=== PATIENT | female | born 1960 | race Caucasian/White ===

== ENCOUNTER 2017-06-20 08:36 | Outpatient (RCR) | payer OTHER, SELFPAY | END 2017-09-10 10:22 | disposition home or self-care (01) | LOC: PT 08:36 | PROVIDERS: Family Provider Family Medicine; Visit Provider Nurse Practitioner Family | DX: I50.9 Heart failure, unspecified (principal) | CPT/HCPCS: 93798 ==

== ENCOUNTER → 2018-01-06 08:51 | Outpatient (POV) | payer BC, SELFPAY ==
[2018-01-06 09:06] VITALS: BP 121/46; PULSE 77; RESP 18; O2SAT 98; BMI 37.8
[2018-01-06 09:14] VITALS: BP 121/46; PULSE 77; RESP 18; O2SAT 98
--- NOTE | 2018-01-07 12:59 | HMH.PMCON ---
Assessment and Plan (1) Arthritis Current visit: Yes Status: Chronic Category: Medical Code(s): M19.90 - Unspecified osteoarthritis, unspecified site (2) Degenerative joint disease (DJD) of lumbar spine Current visit: Yes Status: Chronic Qualifiers: Spinal osteoarthritis complication: unspecified spinal osteoarthritis Qualified Code(s): M47.816 - Spondylosis without myelopathy or radiculopathy, lumbar region Category: Medical Code(s): M47.816 - Spondylosis without myelopathy or radiculopathy, lumbar region - Assessment and plan all Dx Assessment and Plan for all problems:: We will provide the patient with a lumbar back brace. 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 I will follow-up with the patient after her injection or in 1 month. This note was dictated using voice recognition software and may contain errors or omissions HPI - Data of Consult Consult date: 01/07/18 Requesting Physician: Justa Whittaker APRN Primary Care Provider: Percy Lambert MD Family Provider: Percy Lambert MD - Consult Narrative Reason for consult: Overall arthritic pain History of present illness: Ms. Thrasher is a 57 year old female presents today for consultation in regards to her arthritic pain. Patient states that her pain is a 5 out of 10 and is generalized. Patient states sitting for long periods of time and working increases her pain while rest decreases her pain. Patient used to be on Indocin from her arthritis doctor and she stated she did really well on this however she was taken off of it due to her cardiac history. Patient has been diagnosed with congestive heart failure. Patient has not recently been in physical therapy. Patient states she does not feel like she has the energy for it. Patient is seen Dr. Shrestha In the past. Patient has not tried bracing therapy. CC: Justa Whittaker APRN [facility] History I have reviewed the patient's past medical history: Yes Medical History: Reports:: Congestive Heart Failure, Diabetes Mellitus Type 2, Hyperlipidemia, Hypertension, Internal Pacemaker Denies:: MRSA Other Medical History: Reports: Arthritis Laterality Cases: Bilateral: Tonsillectomy Other Surgeries: Yes: Cardiac Catheterization, Cholecystectomy, Pacemaker - *Social History Alcohol Intake: never Occupational Status: employed Housing: house - Psychiatric History Expresses thoughts of harming self/others: None Suicide Plan Description: No Plan *Family Hx:: Unable to obtain Review of Systems - Review of Systems ROS General: no recent weight change, no fever, no sleep disturbances Respiratory: no cough, no shortness of air, no recurring pulmonary infections Cardiovascular/Peripheral Vascular: No chest pain, No palpitations, no edema, no shortness of breath. Gastrointestinal: no incontinence, normal bowel movements reported Genitourinary: no incontinence Musculoskeletal: Back pain, joint pain Psychiatric: normal mood/ affect Neurological: [denies weakness in extremities], [denies balance issues] Meds Home Medications Medication Instructions Recorded Confirmed Type Allopurinol [Allopurinol 100mg 100 mg PO DAILY 01/06/18 01/06/18 History tablet] Carvedilol [Carvedilol 6.25mg Tab] 6.25 mg PO DAILY 01/06/18 01/06/18 History Furosemide [Furosemide 40MG tAB] 40 mg PO DAILY 01/06/18 01/06/18 History Nystatin/Triamcin 100,000 iunits PO DAILY 01/06/18 01/06/18 History [Nystatin-Triamcinolone Ointm] Rosuvastatin Calcium 10 mg PO DAILY 01/06/18 01/06/18 History Allergies Allergy/AdvReac Type Severity Reaction Status Date / Time Sulfa (Sulfonamide Allergy Mild Unverified 05/14/17 14:32 Antibiotics) [SULFA (SULFONAMIDE ANTIBIOTICS)] Objective Vital signs: Pulse Resp BP Pulse Ox 77 18 121/46 98 01/06/18
--- NOTE | 2018-01-07 13:02 | P.CONS_ITS ---
Assessment and Plan (1) Arthritis Current visit: Yes Status: Chronic Category: Medical Code(s): M19.90 - Unspecified osteoarthritis, unspecified site (2) Degenerative joint disease (DJD) of lumbar spine Current visit: Yes Status: Chronic Qualifiers: Spinal osteoarthritis complication: unspecified spinal osteoarthritis Qualified Code(s): M47.816 - Spondylosis without myelopathy or radiculopathy, lumbar region Category: Medical Code(s): M47.816 - Spondylosis without myelopathy or radiculopathy, lumbar region - Assessment and plan all Dx Assessment and Plan for all problems:: We will provide the patient with a lumbar back brace. 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 I will follow-up with the patient after her injection or in 1 month. This note was dictated using voice recognition software and may contain errors or omissions HPI - Data of Consult Consult date: 01/07/18 Requesting Physician: Justa Whittaker APRN Primary Care Provider: Percy Lambert MD Family Provider: Percy Lambert MD - Consult Narrative Reason for consult: Overall arthritic pain History of present illness: Ms. Thrasher is a 57 year old female presents today for consultation in regards to her arthritic pain. Patient states that her pain is a 5 out of 10 and is generalized. Patient states sitting for long periods of time and working increases her pain while rest decreases her pain. Patient used to be on Indocin from her arthritis doctor and she stated she did really well on this however she was taken off of it due to her cardiac history. Patient has been diagnosed with congestive heart failure. Patient has not recently been in physical therapy. Patient states she does not feel like she has the energy for it. Patient is seen Dr. Shrestha In the past. Patient has not tried bracing therapy. CC: Justa Whittaker APRN [facility] History I have reviewed the patient's past medical history: Yes Medical History: Reports:: Congestive Heart Failure, Diabetes Mellitus Type 2, Hyperlipidemia, Hypertension, Internal Pacemaker Denies:: MRSA Other Medical History: Reports: Arthritis Laterality Cases: Bilateral: Tonsillectomy Other Surgeries: Yes: Cardiac Catheterization, Cholecystectomy, Pacemaker - *Social History Alcohol Intake: never Occupational Status: employed Housing: house - Psychiatric History Expresses thoughts of harming self/others: None Suicide Plan Description: No Plan *Family Hx:: Unable to obtain Review of Systems - Review of Systems ROS General: no recent weight change, no fever, no sleep disturbances Respiratory: no cough, no shortness of air, no recurring pulmonary infections Cardiovascular/Peripheral Vascular: No chest pain, No palpitations, no edema, no shortness of breath. Gastrointestinal: no incontinence, normal bowel movements reported Genitourinary: no incontinence Musculoskeletal: Back pain, joint pain Psychiatric: normal mood/ affect Neurological: [denies weakness in extremities], [denies balance issues] Meds Home Medications Medication Instructions Recorded Confirmed Type Allopurinol [Allopurinol 100mg 100 mg PO DAILY 01/06/18 01/06/18 History tablet] Carvedilol [Carvedilol 6.25mg Tab] 6.25 mg PO DAILY 01/06/18 01/06/18 History Furosemide [Furosemide 40MG tAB] 40 mg PO DAILY 01/06/18 01/06/18 History
--- NOTE | 2018-01-10 09:37 | PC.NURSE ---
verbal approval obtained for voltaren gel from pharmacist and Nyasia Hyde DIRECTOR OF INFECTION PREVENTION. Message left with Manuel ZHU for Dr Ortiz to approve LESI. Manuel stated it will be approx 24hrs.
--- NOTE | 2018-01-10 09:46 | PC.NURSE ---
voltaren gel 1% with 2 refills called into [facility] in [place]. pt notified.
== END ==
PROVIDERS: Family Provider Family Medicine; PCP Family Medicine; Visit Provider Clinical Nurse Specialist Family Health
DX: M19.90 Unspecified osteoarthritis, unspecified site (principal); M51.36 Other intervertebral disc degeneration, lumbar region; M47.816 Spondylosis without myelopathy or radiculopathy, lumbar region
CPT/HCPCS: 99202; 99213

== ENCOUNTER → 2018-03-07 07:53 | Outpatient (CLI) | payer BC, SELFPAY ==
--- NOTE | 2018-03-07 07:59 | CT_ITS ---
CT lumbar spine wo con INDICATION: Low back pain, degenerative disc disease ITS.REASON: DDD ORDERING PHYSICIAN: Percy Lambert MD PATIENT AGE: 57 years COMPARISON: 07/12/2016 TECHNIQUE: Axial images obtained with sagittal and coronal reformats. All CT scans at the facility use one or more dose reduction, viz: automated exposure control, ma/kV adjustment per patient size (including targeted exams where dose is matched to indication, i.e. head), or iterative reconstruction technique. FINDINGS: There is mild lumbar scoliosis convex left measuring approximately 20 degrees. There is multilevel degenerative disc disease with endplate bridging osteophytes. T12-L1: Bridging osteophytes laterally. L1-L2: Degenerative disc disease with bridging osteophytes with facet and ligamentum flavum hypertrophy along with mild bulging disc and mild right-sided foraminal narrowing. L2-L3: Degenerative disc disease with bridging osteophytes along with facet and ligamentum flavum hypertrophy and bulging disc with bilateral lateral recess and foraminal narrowing greater on the right L2-L3: Degenerative disc disease with bridging osteophytes laterally along with facet and ligamentum flavum hypertrophy with moderate bilateral lateral recess and moderate foraminal narrowing right greater than left. L3-L4: Degenerative disc disease with bulging disc along with endplate hypertrophic change posteriorly with facet and ligamentum flavum hypertrophy with canal stenosis and severe bilateral lateral recess narrowing and bilateral foraminal narrowing greater on the right. L4-L5: Degenerative disc disease with endplate hypertrophic change and facet and ligamentum flavum hypertrophy with canal stenosis along with bilateral lateral recess and foraminal narrowing which is greater on the left. L5-S1: Concentric bulging disc with mild degenerative disc disease with severe left-sided foraminal narrowing from underlying osteophyte formation. Incidental note made of nonobstructing 2 mm stone in the lower pole the right kidney. IMPRESSION: Multilevel lumbar spondylosis with prominent osteophytes, scoliosis, facet and ligamentum flavum hypertrophy with bulging disc and multilevel degenerative disc disease with canal stenosis and varying levels of lateral recess and foraminal narrowing. Please see above for detailed description at each level.
== END ==
PROVIDERS: Family Provider Family Medicine; PCP Family Medicine; Visit Provider Family Medicine
DX: M51.36 Other intervertebral disc degeneration, lumbar region (principal)
CPT/HCPCS: 72131

== ENCOUNTER → 2018-06-20 08:53 | Outpatient (CLI) | payer BC, SELFPAY ==
--- NOTE | 2018-06-20 08:56 | MM_ITS ---
MM Dig screening mamm BI w/CAD CAD Screening COMPARISON: Analog mammograms 09/21/2009 and digital mammograms with CAD 06/28/2016 INDICATION: There is a history of breast cancer patient's paternal grandmother diagnosed before menopause. TECHNIQUE: Standard CC and MLO images were obtained. R2 CAD reviewed. FINDINGS: Diffuse heterogenic fibroglandular densities are seen throughout both breast somewhat lessening the sensitivity of mammography. There are stable nodular density outer quadrant right breast consistent with intramammary node. There is a stable oval nodular density inner quadrant left breast. There are mole markers on each breast. There is metallic cardiac pacing device projecting over and obscuring the left axilla. There is no suspicious lesion and no suspicious microcalcifications. IMPRESSION: Diffusely dense parenchymal pattern with no suspicious lesion seen BI-RADS Category: 2 Benign Finding(s) RECOMMENDED FOLLOW-UP: 1YR - 1 YEAR FOLLOW-UP (A letter has been sent to the patient regarding results of the study.)
--- NOTE | 2018-06-20 08:57 | XR_ITS ---
XR DEXA axial skeleton HISTORY: ITS.REASON: OSTEOPENIA ORDERING PHYSICIAN: Percy Lambert MD PATIENT AGE: 57 years COMPARISON: None FINDINGS: The BMD measured at the Left femoral neck is 0.906 g/cm squared with a T score of -1.0. This is considered Normal according to the World Health Organization criteria. Fracture risk is Low. L1-L4 density has a T score score of 4.5 IMPRESSION: Normal bone density. Recommend follow-up exam May 2020
== END ==
PROVIDERS: PCP Family Medicine; Visit Provider Family Medicine
DX: Z12.31 Encounter for screening mammogram for malignant neoplasm of breast (principal); N60.19 Diffuse cystic mastopathy of unspecified breast; M81.0 Age-related osteoporosis without current pathological fracture
CPT/HCPCS: 77067; 77080

== ENCOUNTER → 2018-07-09 11:37 | Outpatient (CLI) | payer BC, SELFPAY ==
--- NOTE | 2018-07-09 11:45 | XR_ITS ---
XR chest 2V HISTORY: Shortness of breath ITS.REASON: SOB ORDERING PHYSICIAN: VERA Cantu PATIENT AGE: 57 years COMPARISON: 04/22/2017 FINDINGS: Biventricular pacemaker with right atrial lead noted. Unremarkable heart size. Calcified granuloma is present in the right lower lobe. Thoracolumbar scoliosis convex left. There is some pleural thickening in the right lower hemithorax laterally. No lobar consolidation or collapse. There is a bone plate of the lower cervical spine. There are degenerative changes in the thoracic spine. IMPRESSION: As above, chronic changes with no acute finding
== END ==
PROVIDERS: PCP Family Medicine; Visit Provider Physician Assistant
DX: R06.02 Shortness of breath (principal)
CPT/HCPCS: 71046

== ENCOUNTER → 2018-08-01 11:09 | Outpatient (CLI) | payer BC, SELFPAY ==
[2018-08-01 15:49] LABS: Anion Gap 14.5 mEq/L (5-15); Blood Urea Nitrogen 16 mg/dL (7-18); Calcium 9.2 mg/dL (8.5-10.1); Carbon Dioxide 29 mmol/L (21.0-32.0); Chloride 102 mmol/L (98-107); Creatinine,Serum 0.94 mg/dL (0.55-1.02); Estimated Glomerular Filt Rate 61 ml/min (>60); GFR (African American) 74 ML/MIN (>60); Glucose 104 mg/dL (74-106); Potassium 4.5 mmoL/L (3.5-5.1); Sodium 141 mmol/L (136-145)
== END ==
PROVIDERS: Visit Provider Nurse Practitioner Family
DX: I50.22 Chronic systolic (congestive) heart failure (principal)
CPT/HCPCS: 36415; 80048

== ENCOUNTER → 2019-04-15 16:02 | Outpatient (CLI) | payer OTHER, SELFPAY ==
--- NOTE | 2019-04-15 16:10 | XR_ITS ---
PROCEDURE: XR HIP RT 2-3V W/PELVIS CLINICAL INDICATION: RT HIP PAIN Recent fall with injury and pain COMPARISON: No exams were available for comparison FINDINGS: Mild osteoarthritic changes of the hip. There is some soft tissue calcification lateral to the greater trochanter well-circumscribed and could be due to a prior trauma. IMPRESSION: Mild osteoarthritis, heterotopic ossification at the greater trochanter, no acute finding Dictated by: Tyler Jaime MD 04/15/2019 17:29 Electronically signed by Tyler Jaime MD in [place] 04/15/2019 17:29
--- NOTE | 2019-04-15 16:10 | XR_ITS ---
PROCEDURE: XR FEMUR RT 2V CLINICAL INDICATION: RT HIP PAIN COMPARISON: No exams were available for comparison FINDINGS: No fracture or dislocation. No lytic or blastic change. There is normal mineralization. Mild osteoarthritic change at the hip and knee Other findings:None. IMPRESSION: No acute findings. Dictated by: Tyler Jaime MD 04/15/2019 17:31 Electronically signed by Tyler Jaime MD in [place] 04/15/2019 17:31
--- NOTE | 2019-04-15 16:10 | XR_ITS ---
PROCEDURE: XR PELVIS MIN 3V CLINICAL INDICATION: RT HIP PAIN COMPARISON: No exams were available for comparison TECHNIQUE: XR Pelvis AP View FINDINGS: No fracture or dislocation is evident. Mild osteoarthritic change of the hips Heterotopic ossification at the greater trochanter on the right. Degenerative changes lumbosacral junction IMPRESSION: No acute findings. Dictated by: Tyler Jaime MD 04/15/2019 17:30 Electronically signed by Tyler Jaime MD in [place] 04/15/2019 17:30
== END ==
PROVIDERS: PCP Physician Assistant; Visit Provider Physician Assistant
DX: M25.551 Pain in right hip (principal)
CPT/HCPCS: 72190; 73502; 73552

== ENCOUNTER → 2019-07-28 12:47 | Outpatient (CLI) | payer OTHER, SELFPAY ==
[2019-07-28 12:55] LABS: Adenovirus F 40/41, stool Not Detected (NotDetected); Astrovirus Not Detected (NotDetected); Campylobacter Not Detected (NotDetected); Clostridium Difficile A/B, PCR Not Detected (NotDetected); Cryptosporidium Not Detected (NotDetected); Cyclospora Cayetanesis Not Detected (NotDetected); Entamoeba histolytica Not Detected (NotDetected); Enteroaggregative E coli Not Detected (NotDetected); Enteropathogenic E coli Not Detected (NotDetected); Enterotoxigenic E coli Not Detected (NotDetected); Giardia lamblia Not Detected (NotDetected); Norovirus Not Detected (NotDetected); Plesimonas Shigalloides, PCR Not Detected (NotDetected); Rotavirus A Not Detected (NotDetected); Salmonella, PCR Not Detected (NotDetected); Sapovirus Not Detected (NotDetected); Shiga-like toxin E coli Not Detected (NotDetected); Shigella Enterovasive E coli Not Detected (NotDetected); Vibrio Cholerae Not Detected (NotDetected); Vibrio, PCR Not Detected (NotDetected); Yersinia Entercolitica, PCR Not Detected (NotDetected)
== END ==
PROVIDERS: Visit Provider Family Medicine
DX: R19.7 Diarrhea, unspecified (principal)
CPT/HCPCS: 87507

== ENCOUNTER 2019-11-03 17:41 | Emergency (ER) | payer OTHER, SELFPAY ==
[2019-11-03 17:42] VITALS: BP 133/86; BP 160/76; PULSE 83; RESP 16; TEMP 36.8; O2SAT 98; BMI 38.6
--- NOTE | 2019-11-03 18:07 | ECG_ITS ---
APPROVED REPORT Exam: Resting ECG HR:75 bpm ECG Measurements Heart Rate 75 AXES NV 84 P 49 QRSd 156 QRS 220 QT 470 T 68 QTc 524 <Conclusion> Electronic ventricular pacemaker Electronically signed by : Rayray Davis, 11/04/2019 06:13:15
--- NOTE | 2019-11-03 18:07 | XR_ITS ---
PROCEDURE: XR CHEST 2V CLINICAL HISTORY: SOA, DROWSY Hypotension, former smoker COMPARISON: CXR CHEST(2 VIEWS-NOT PORTABLE) from 10/15/2014 CXR CHEST(2 VIEWS-NOT PORTABLE) from 04/22/2017 CXR2V XR chest 2V from 07/09/2018 FINDINGS: Biventricular pacemaker with right atrial lead is present from the left subclavian approach. Normal heart size. Calcified granulomas present in the right lower lobe. The remaining lungs are clear. Mild upper thoracic curvature convex right and thoracolumbar curvature convex left with cervical spine bone plate and mild thoracic kyphosis IMPRESSION: No change with no acute finding Dictated by: Tyler Jaime MD 11/03/2019 22:39 Electronically signed by Tyler Jaime MD in [place] 11/03/2019 22:39
--- NOTE | 2019-11-03 18:08 | HMH.EDGENADL ---
ED Disposition Clinical Impression: Blood pressure abnormally low Disposition: Home, Self-Care Condition on Discharge: Good Additional Instructions: Follow-up with your primary care provider and with your glass cut off tender. Take your blood pressure cuff in to be checked against another blood pressure cuff in the office. Return to the emergency room if any worsening of symptoms. Referrals: Percy Lambert MD [Primary Care Provider] - - Critical Care Critical Care Time: No Attestation: On 11/03/19, the high probability of a clinically significant, sudden or life threatening deterioration of the following system(s) required my full and direct attention, intervention and personal management. The time I documented below is in addition to time spent performing reported procedures but includes the following listed in this critical care notation. Medical Decision Making - Medical Records Medical records reviewed: Yes: I reviewed the patient's medical records. - Ambrocio Inquiry Pt receiving controlled substance: No Vital Signs: 11/03/19 17:42 Temperature 98.2 F Temperature Source Oral Pulse Rate [Right Radial] 83 Respiratory Rate 16 Blood Pressure [Left Arm] 160/76 H Blood Pressure [Right Arm] 133/86 Blood Pressure Mean [Left Arm] 104 Blood Pressure Mean [Right Arm] 101 Blood Pressure Source [Left Arm] Automatic Cuff Blood Pressure Source [Right Arm] Automatic Cuff Blood Pressure Position [Left Arm] Sitting Blood Pressure Position [Right Arm] Sitting 02 Sat by Pulse Oximetry 98 Oxygen Delivery Method Room Air - Lab Data Lab results reviewed: Yes: I reviewed the patient's lab results. Lab Results 11/03/19 18:15: WBC 7.3, RBC 4.12 L, Hgb 12.6, Hct 36.5 L, MCV 88.6, MCH 30.6, MCHC 34.5, RDW 16.0, Plt Count 197, MPV 8.0, Neut % (Auto) 64.1, Lymph % (Auto) 22.9, [place] % (Auto) 7.3, Eos % (Auto) 5.2, Baso % (Auto) 0.5, Neut # (Auto) 4.7, Lymph # (Auto) 1.7, [place] # (Auto) 0.5, Eos # (Auto) 0.4, Baso # (Auto) 0.0 11/03/19 18:15: Sodium 135 L, Potassium 3.8, Chloride 103, Carbon Dioxide 23, Anion Gap 12.8, BUN 15, Creatinine 0.80, Estimated Creat Clear 120, Estimated GFR 73, Est GFR ( Amer) 89, Glucose 240 H, Calcium 8.8, Total Bilirubin 0.7, AST 34, ALT 18, Alkaline Phosphatase 150 H, Troponin I < 0.01, Total Protein 7.2, Albumin 3.8, Globulin 3.4 H, Albumin/Globulin Ratio 1.1 Result diagrams: 11/03/19 18:15 11/03/19 18:15 Orders (Tests/Meds): ORDERS Category Date Time Status Chest XR 2 view (NOT portable) [XR chest 2V] Stat Exams 11/03/19 18:07 Taken Troponin I Q3H Lab 11/03/19 21:15 Ordered Troponin I Q3H Lab 11/04/19 00:15 Ordered - ECG Data Tracing #1 EKG interpreted by Kenneth Torres MD: Rhythm: Electronic ventricular pacemaker Rate: 75 No evidence of acute ischemia or injury Medical Decision Narrative: Blood pressure has remained stable in the emergency department. Discussed patient's blood sugar with her and she will follow-up with primary care. General Adult HPI - General Chief complaint: Dizziness Stated complaint: Low blood pressure Time Seen by Provider: 11/03/19 18:09 Mode of Arrival: Ambulatory Limitations: No Limitations Description of Symptoms (Recalled from ER Triage Doc. by RN): PT TO ED VIA PVT CAR C/O LOW BP AT HOME, DIZZINESS, SOA AND DROWSINESS TODAY. PT ADVISES THAT SHE TOOK TWO BENADRYL YESTERDAY BECAUSE SHE THOUGHT SHE MAY HAVE SUN POISONING SO SHE THOUGHT THE DROWSINESS WAS D/T THAT. 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 - History of Present Illness HPI narrative: States her blood pressure was running low today, 80s to 90s systolic, taken at home. She has felt a little short of breath today and drowsy since yesterday. She took Benadryl yesterday for sun poisoning and believes that caused her drowsiness. Denies chest discomfort. Called her cardiology office
[2019-11-03 18:27] LABS: Basophils % 0.5 % (0.1-2.0); Eosinophils # 0.4 K/mm3 (0.0-0.4); Eosinophils % 5.2 % (0.1-12.0); Hematocrit 36.5 % (37.0-47.0); Hemoglobin 12.6 g/dL (12.2-16.2); Lymphocytes # 1.7 K/mm3 (0.7-4.5); Lymphocytes % 22.9 % (10-50); Mean Corpuscular HGB Conc 34.5 g/dL (31.8-35.4); Mean Corpuscular Hemoglobin 30.6 pg (27.0-31.2); Mean Corpuscular Volume 88.6 fl (81-99); Monocytes # 0.5 K/mm3 (0.1-1.0); Monocytes % 7.3 % (1.7-9.3); Neutrophils # 4.7 K/mm3 (1.8-7.8); Neutrophils % 64.1 % (37.0-80.0); Platelet Count 197 K/mm3 (142-424); Red Blood Count 4.12 M/mm3 (4.20-5.40); White Blood Count 7.3 K/mm3 (4.8-10.8)
[2019-11-03 18:30] LABS: Chloride 103 mmol/L (98-107); Potassium 3.8 mmoL/L (3.5-5.1); Sodium 135 mmol/L (136-145)
[2019-11-03 18:33] LABS: Alanine Aminotransferase 18 U/L (12-78); Albumin Level 3.8 g/dl (3.5-5.0); Albumin/Globulin Ratio 1.1 (1.1-1.8); Alkaline Phosphatase 150 U/L (38-126); Anion Gap 12.8 mEq/L (5-15); Aspartate Amino Transferase 34 U/L (14-36); Bilirubin,Total 0.7 mg/dl (0.2-1.3); Blood Urea Nitrogen 15 mg/dl (7-17); Calcium 8.8 mg/dl (8.4-10.2); Carbon Dioxide 23 mmol/L (22.0-30.0); Creatinine Clearance Estimated 120 mL/min (50-200); Estimated Glomerular Filt Rate 73 ml/min (>60); GFR (African American) 89 ML/MIN (>60); Globulin 3.4 g/dL (1.3-3.2); Glucose 240 mg/dl (74-100); Total Protein,Serum 7.2 g/dl (6.3-8.2)
[2019-11-03 19:16] LABS: Troponin I < 0.01 ng/ml (0.00-0.034)
[2019-11-03 20:09] VITALS: BP 133/89; PULSE 85; RESP 19; TEMP 36.6; O2SAT 99
== END 2019-11-03 20:11 | disposition home or self-care (01) ==
PROVIDERS: Emergency Provider Emergency Medicine; PCP Family Medicine
DX: R03.1 Nonspecific low blood-pressure reading (principal); I50.9 Heart failure, unspecified; I10 Essential (primary) hypertension; E78.5 Hyperlipidemia, unspecified; E11.65 Type 2 diabetes mellitus with hyperglycemia; Z95.0 Presence of cardiac pacemaker; Z88.2 Allergy status to sulfonamides; Z79.899 Other long term (current) drug therapy
CPT/HCPCS: 71046; 80053; 84484; 85025; 93005; 96365; 99283

== ENCOUNTER → 2020-01-28 13:57 | Outpatient (CLI) | payer OTHER, SELFPAY ==
[2020-01-28 14:47] LABS: Basophils # 0.1 K/mm3 (0-0.2); Basophils % 0.5 % (0.1-2.0); Eosinophils # 0.3 K/mm3 (0.0-0.4); Eosinophils % 2.9 % (0.1-12.0); Hematocrit 39.9 % (37.0-47.0); Hemoglobin 13.9 g/dL (12.2-16.2); Lymphocytes # 1.4 K/mm3 (0.7-4.5); Lymphocytes % 13.4 % (10-50); Mean Corpuscular HGB Conc 34.8 g/dL (31.8-35.4); Mean Corpuscular Hemoglobin 30.6 pg (27.0-31.2); Mean Corpuscular Volume 88.2 fl (81-99); Mean Platelet Volume 8.2 fl (7.4-10.4); Monocytes # 0.8 K/mm3 (0.1-1.0); Monocytes % 7.5 % (1.7-9.3); Neutrophils # 7.9 K/mm3 (1.8-7.8); Neutrophils % 75.7 % (37.0-80.0); Platelet Count 160 K/mm3 (142-424); Red Blood Count 4.52 M/mm3 (4.20-5.40); Red Cell Distribution Width 15.7 % (11.5-17.5); White Blood Count 10.4 K/mm3 (4.8-10.8)
[2020-01-30 14:43] LABS: Covid-19 Nasal PCR Sendout Lex Not Detected
== END ==
PROVIDERS: PCP Family Medicine; Visit Provider Physician Assistant
DX: Z03.818 Encounter for observation for suspected exposure to other biological agents ruled out (principal)
CPT/HCPCS: 36415; 85025; U0004

== ENCOUNTER → 2020-10-14 07:24 | Outpatient (CLI) | payer MEDICARE, SELFPAY ==
[2020-10-14 08:33] LABS: Hemoglobin A1C 7.4 % (4.0-6.0)
[2020-10-14 09:05] LABS: Alanine Aminotransferase 16 U/L (12-78); Albumin Level 4.5 g/dl (3.5-5.0); Albumin/Globulin Ratio 1.7 (1.1-1.8); Alkaline Phosphatase 102 U/L (38-126); Anion Gap 15.1 mEq/L (5-15); Aspartate Amino Transferase 25 U/L (14-36); Bilirubin,Total 0.7 mg/dl (0.2-1.3); Blood Urea Nitrogen 27 mg/dl (7-17); Calcium 9.6 mg/dl (8.4-10.2); Carbon Dioxide 24 mmol/L (22.0-30.0); Chloride 106 mmol/L (98-107); Chol/HDL Ratio 6.3 (1-3.5); Cholesterol 177 mg/dl (140-200); Estimated Glomerular Filt Rate 64 ml/min (>60); GFR (African American) 77 ML/MIN (>60); Globulin 2.7 g/dL (1.3-3.2); Glucose 193 mg/dl (74-100); HDL Cholesterol 28 mg/dl (40-60); Potassium 4.1 mmoL/L (3.5-5.1); Sodium 141 mmol/L (136-145); Total Protein,Serum 7.2 g/dl (6.3-8.2); Uric Acid 4.6 mg/dl (2.5-6.2)
[2020-10-14 09:12] LABS: Triglycerides 776 mg/dl (30-150)
[2020-10-14 09:16] LABS: Direct LDL Cholesterol 47.89 mg/dL (100-129)
== END ==
PROVIDERS: Visit Provider Family Medicine
DX: E11.59 Type 2 diabetes mellitus with other circulatory complications (principal); E78.5 Hyperlipidemia, unspecified; I10 Essential (primary) hypertension; I25.9 Chronic ischemic heart disease, unspecified; I25.5 Ischemic cardiomyopathy; M25.551 Pain in right hip
CPT/HCPCS: 36415; 80053; 80061; 83036; 84550

== ENCOUNTER → 2020-12-30 08:34 | Outpatient (CLI) | payer MEDICARE, SELFPAY ==
[2020-12-30 10:22] LABS: Chloride 106 mmol/L (98-107); Sodium 144 mmol/L (136-145)
[2020-12-30 10:23] LABS: Potassium 4.5 mmoL/L (3.5-5.1)
[2020-12-30 10:25] LABS: Alanine Aminotransferase 14 U/L (12-78); Albumin Level 4.4 g/dl (3.5-5.0); Albumin/Globulin Ratio 1.6 (1.1-1.8); Alkaline Phosphatase 94 U/L (38-126); Anion Gap 17.5 mEq/L (5-15); Aspartate Amino Transferase 27 U/L (14-36); Bilirubin,Total 0.7 mg/dl (0.2-1.3); Blood Urea Nitrogen 19 mg/dl (7-17); Carbon Dioxide 25 mmol/L (22.0-30.0); Cholesterol 143 mg/dl (140-200); Estimated Glomerular Filt Rate 73 ml/min (>60); GFR (African American) 88 ML/MIN (>60); Globulin 2.7 g/dL (1.3-3.2); Total Protein,Serum 7.1 g/dl (6.3-8.2)
[2020-12-30 10:26] LABS: Calcium 9.7 mg/dl (8.4-10.2); Glucose 150 mg/dl (74-100); HDL Cholesterol 24 mg/dl (40-60)
[2020-12-30 10:31] LABS: Triglycerides 483 mg/dl (30-150)
[2020-12-30 10:37] LABS: Direct LDL Cholesterol 48.55 mg/dL (100-129)
[2020-12-30 18:28] LABS: Basophils # 0.1 K/mm3 (0-0.2); Basophils % 1.1 % (0.1-2.0); Eosinophils # 0.3 K/mm3 (0.0-0.4); Eosinophils % 3.1 % (0.1-12.0); Hematocrit 40.8 % (37.0-47.0); Hemoglobin 13.4 g/dL (12.2-16.2); Lymphocytes # 1.6 K/mm3 (0.7-4.5); Lymphocytes % 18.4 % (10-50); Mean Corpuscular HGB Conc 32.9 g/dL (31.8-35.4); Mean Corpuscular Hemoglobin 29.4 pg (27.0-31.2); Mean Corpuscular Volume 89.3 fl (81-99); Mean Platelet Volume 9.6 fl (7.4-10.4); Monocytes # 0.8 K/mm3 (0.1-1.0); Monocytes % 8.8 % (1.7-9.3); Neutrophils # 5.8 K/mm3 (1.8-7.8); Neutrophils % 68.6 % (37.0-80.0); Platelet Count 237 K/mm3 (142-424); Red Blood Count 4.57 M/mm3 (4.20-5.40); Red Cell Distribution Width 15.7 % (11.5-17.5); White Blood Count 8.4 K/mm3 (4.8-10.8)
[2020-12-30 19:05] LABS: Thyroid Stimulating Hormone 3.65 uIU/mL (0.465-4.68)
== END ==
PROVIDERS: Visit Provider Internal Medicine Cardiovascular Disease
DX: I25.5 Ischemic cardiomyopathy (principal); E78.5 Hyperlipidemia, unspecified; R53.83 Other fatigue
CPT/HCPCS: 80053; 80061; 84443; 85025

== ENCOUNTER → 2021-02-21 15:25 | Outpatient (CLI) | payer MEDICARE, SELFPAY ==
--- NOTE | 2021-02-21 15:33 | XR_ITS ---
PROCEDURE: XR CHEST PORTABLE CLINICAL HISTORY: COVID OUTPATIENT COMPARISON: DX CXR CHEST(2 VIEWS-NOT PORTABLE) from 04/22/2017 CR CXR2V XR chest 2V from 07/09/2018 CR XR CHEST 2V from 11/03/2019 FINDINGS: Biventricular pacemaker is present from left subclavian approach. Right atrial pacer wire also noted. Normal heart size. Calcified granuloma right lung base laterally. The remaining lungs are clear. Degenerative changes thoracic spine with mild lower thoracic curvature convex left IMPRESSION: No change with no acute finding Dictated by: Tyler Jaime MD 02/21/2021 16:28 Tyler Jaime MD in [place] 02/21/2021 16:28
[2021-02-21 15:55] LABS: Adenovirus,PCR Not Detected (NotDetected); Bordetella Pertussis Not Detected (NotDetected); Chlamydophila Pneumoniae, PCR Not Detected (NotDetected); Coronavirus 229E Not Detected (NotDetected); Coronavirus NL63 Not Detected (NotDetected); Coronavirus OC43 Not Detected (NotDetected); Coronovirus HKU1,PCR Not Detected (NotDetected); Human Metapneumovirus Not Detected (NotDetected); Influenza A, PCR Not Detected (NotDetected); Influenza AH1, 2009 Not Detected (NotDetected); Influenza AH1, PCR Not Detected (NotDetected); Influenza AH3,PCR Not Detected (NotDetected); Influenza B, PCR Not Detected (NotDetected); Mycoplasma Pneumoniae, PCR Not Detected (NotDetected); Parainfluenza 1, PCR Not Detected (NotDetected); Parainfluenza 2, PCR Not Detected (NotDetected); Parainfluenza 3, PCR Not Detected (NotDetected); Parainfluenza 4, PCR Not Detected (NotDetected); Respiratory Syncytial Virus Not Detected (NotDetected); Rhinovirus/Enterovirus Not Detected (NotDetected)
[2021-02-21 16:38] LABS: Basophils # 0.1 K/mm3 (0-0.2); Basophils % 0.6 % (0.1-2.0); Eosinophils # 0.2 K/mm3 (0.0-0.4); Eosinophils % 1.9 % (0.1-12.0); Hematocrit 42.2 % (37.0-47.0); Hemoglobin 13.7 g/dL (12.2-16.2); Lymphocytes % 19.2 % (10-50); Mean Corpuscular HGB Conc 32.4 g/dL (31.8-35.4); Mean Corpuscular Hemoglobin 30.4 pg (27.0-31.2); Mean Platelet Volume 8.5 fl (7.4-10.4); Monocytes # 0.9 K/mm3 (0.1-1.0); Monocytes % 8.7 % (1.7-9.3); Neutrophils # 7.2 K/mm3 (1.8-7.8); Neutrophils % 69.5 % (37.0-80.0); Platelet Count 261 K/mm3 (142-424); Red Blood Count 4.49 M/mm3 (4.20-5.40); Red Cell Distribution Width 15.2 % (11.5-17.5); White Blood Count 10.4 K/mm3 (4.8-10.8)
[2021-02-21 17:46] LABS: Coronavirus 19, PCR Detected (NotDetected)
== END ==
PROVIDERS: PCP Family Medicine; Visit Provider Nurse Practitioner Family
DX: U07.1 COVID-19; R06.09 Other forms of dyspnea; R05 Cough
CPT/HCPCS: 36415; 71045; 85025; 87581; 87632; 87798; C9803; U0003; U0005

== ENCOUNTER → 2021-03-02 11:50 | Outpatient (CLI) | payer MEDICARE, SELFPAY ==
--- NOTE | 2021-03-02 11:56 | XR_ITS ---
PROCEDURE: XR CHEST PORTABLE CLINICAL HISTORY: COVID OUTPATIENT COMPARISON: CR CXR2V XR chest 2V from 07/09/2018 CR XR CHEST 2V from 11/03/2019 CR XR CHEST PORTABLE from 02/21/2021 FINDINGS: This slightly poor inspiration. The lung barbosa are clear of active infiltrate. There is a calcified granuloma right lower lobe. Cardiac size is normal. There is a left-sided cardiac pacemaker with dual chamber electrodes both in good position. There is no pleural fluid. Mild multilevel degenerate changes of the thoracic spine and there is mild levo scoliotic curvature of the thoracolumbar junction. IMPRESSION: No acute findings. Dictated by: Dr. Moises Hoskins MD 03/02/2021 12:16 Dr. Moises Hoskins MD in [place] 03/02/2021 12:16
[2021-03-02 12:52] LABS: Basophils # 0.2 K/mm3 (0-0.2); Basophils % 0.9 % (0.1-2.0); Eosinophils % 0.1 % (0.1-12.0); Hematocrit 47.2 % (37.0-47.0); Hemoglobin 15.4 g/dL (12.2-16.2); Lymphocytes # 2.9 K/mm3 (0.7-4.5); Lymphocytes % 13.8 % (10-50); Mean Corpuscular HGB Conc 32.7 g/dL (31.8-35.4); Mean Corpuscular Hemoglobin 29.6 pg (27.0-31.2); Mean Corpuscular Volume 90.5 fl (81-99); Mean Platelet Volume 9.2 fl (7.4-10.4); Monocytes # 1.6 K/mm3 (0.1-1.0); Monocytes % 7.7 % (1.7-9.3); Neutrophils # 16.4 K/mm3 (1.8-7.8); Neutrophils % 77.4 % (37.0-80.0); Platelet Count 360 K/mm3 (142-424); Red Blood Count 5.21 M/mm3 (4.20-5.40); Red Cell Distribution Width 15.3 % (11.5-17.5); White Blood Count 21.2 K/mm3 (4.8-10.8)
[2021-03-02 12:56] LABS: MANUAL DIFFERENTIAL MANUAL DIFFERENTIAL (MANUAL DIFF)
[2021-03-02 13:27] LABS: Lymphocytes % 30 % (10-50); Monocytes % 11 % (2-9); Neutrophils % 59 % (42-76); Platelet Estimate Normal; RBC Morphology Normal; Total Cells Counted 100
== END ==
PROVIDERS: PCP Physician Assistant; Visit Provider Physician Assistant
DX: Z20.822 Contact with and (suspected) exposure to COVID-19 (principal)
CPT/HCPCS: 36415; 71045; 85007; 85025

== ENCOUNTER → 2021-03-08 11:03 | Outpatient (CLI) | payer MEDICARE, SELFPAY ==
--- NOTE | 2021-03-08 11:10 | XR_ITS ---
PROCEDURE: XR CHEST PORTABLE CLINICAL HISTORY: COVID TESTING COMPARISON: CR XR CHEST 2V from 11/03/2019 CR XR CHEST PORTABLE from 02/21/2021 CR XR CHEST PORTABLE from 03/02/2021 FINDINGS: Biventricular pacemaker is present with adequate lead position on the AP chest. Are 80 pacemaker is also noted with adequate positioning. Mild cardiomegaly with no evidence of CHF. Calcified granuloma right lower lobe. No lobar consolidation or collapse. The pacemaker generator does obscure part of the left lower lobe. No acute bony abnormalities. IMPRESSION: No acute findings. Dictated by: Tyler Jaime MD 03/08/2021 11:36 Tyler Jaime MD in [facility] 03/08/2021 11:36
[2021-03-08 11:46] LABS: Basophils # 0.1 K/mm3 (0-0.2); Basophils % 0.7 % (0.1-2.0); Eosinophils # 0.2 K/mm3 (0.0-0.4); Eosinophils % 1.5 % (0.1-12.0); Hematocrit 46.7 % (37.0-47.0); Lymphocytes % 14.3 % (10-50); Mean Corpuscular HGB Conc 32.1 g/dL (31.8-35.4); Mean Corpuscular Hemoglobin 30.4 pg (27.0-31.2); Mean Corpuscular Volume 94.8 fl (81-99); Mean Platelet Volume 8.3 fl (7.4-10.4); Monocytes # 0.7 K/mm3 (0.1-1.0); Monocytes % 4.9 % (1.7-9.3); Neutrophils # 11.2 K/mm3 (1.8-7.8); Neutrophils % 78.6 % (37.0-80.0); Platelet Count 259 K/mm3 (142-424); Red Blood Count 4.93 M/mm3 (4.20-5.40); Red Cell Distribution Width 15.2 % (11.5-17.5); White Blood Count 14.2 K/mm3 (4.8-10.8)
[2021-03-08 12:08] LABS: Alanine Aminotransferase 27 U/L (12-78); Albumin Level 4.2 g/dl (3.5-5.0); Albumin/Globulin Ratio 1.6 (1.1-1.8); Alkaline Phosphatase 101 U/L (38-126); Anion Gap 14.5 mEq/L (5-15); Aspartate Amino Transferase 28 U/L (14-36); Bilirubin,Total 0.7 mg/dl (0.2-1.3); Blood Urea Nitrogen 21 mg/dl (7-17); Calcium 9.8 mg/dl (8.4-10.2); Carbon Dioxide 25 mmol/L (22.0-30.0); Chloride 102 mmol/L (98-107); Estimated Glomerular Filt Rate 73 ml/min (>60); GFR (African American) 88 ML/MIN (>60); Globulin 2.7 g/dL (1.3-3.2); Glucose 322 mg/dl (74-100); Potassium 4.5 mmoL/L (3.5-5.1); Sodium 137 mmol/L (136-145); Total Protein,Serum 6.9 g/dl (6.3-8.2)
== END ==
PROVIDERS: PCP Nurse Practitioner Family; Visit Provider Nurse Practitioner Family
DX: Z20.822 Contact with and (suspected) exposure to COVID-19 (principal)
CPT/HCPCS: 36415; 71045; 80053; 85025

== ENCOUNTER 2021-03-17 10:17 | Emergency (ER) | payer MEDICARE, SELFPAY ==
[2021-03-17 11:46] VITALS: BP 134/67; PULSE 82; RESP 20; O2SAT 95; BMI 35.6
--- NOTE | 2021-03-17 12:05 | HMH.EDUTC ---
[facility] [place] Impression: Conjunctivitis due to COVID-19 Pharyngitis Qualifiers: Pharyngitis/tonsillitis etiology: unspecified etiology Qualified Code(s): J02.9 - Acute pharyngitis, unspecified Disposition: Home, Self-Care Condition on Discharge: Good Instructions: DI for COVID-19 (Suspected or Confirmed ) Additional Instructions: Mix liquid Benadry and liquid ibuprofen and gargle to reduce inflammation of tonsils Prescriptions: Fluorometholone Acetate [Flarex] 1 drp OP QID 7 Days #1 ml Transmission Status: Pending to [facility] Carboxymethylcellulos/Glycerin [Refresh Repair 0.5-0.9% Drop] 1 drp OP Q2HP PRN 10 Days #1 ml PRN Reason: Eye Irritation Transmission Status: Pending to [facility] Trifluridine [Viroptic] 1 drp OP QID 7 Days #1 ml Transmission Status: Pending to [facility] Referrals: Percy Lambert MD [Primary Care Provider] - Time of Disposition: 12:41 Medical Decision Making - Medical Records Medical records reviewed: Yes: I reviewed the patient's medical records. MR Comment: Patient has had 3 negative chest Xrays. WBC was elevated, but patient has had steroids. Patient has had Z-Pack, Cefdinir, gentamycin eye ointment - Ambrocio Inquiry Pt receiving controlled substance: No Vital Signs: 03/17/21 11:46 Pulse Rate [Right Brachial] 82 Respiratory Rate 20 Blood Pressure [Right Arm] 134/67 Blood Pressure Mean [Right Arm] 89 Blood Pressure Source [Right Arm] Automatic Cuff Blood Pressure Position [Right Arm] Sitting 02 Sat by Pulse Oximetry 95 [facility] [place] - General Stated complaint: getting over covid, not feeling good,head,voice Time Seen by Provider: 03/17/21 12:05 Mode of Arrival: Ambulatory Source of Information: Patient Limitations: No Limitations Description of Symptoms (Recalled from Triage Doc. by RN): post covid problems. chest hurting. diabetic. red eyes. sob HEENT Symptoms (Recalled from RN notes): Yes Resp Symptoms (Recalled from RN notes): Yes Skin Symptoms (Recalled from RN notes): No MS Symptoms (Recalled from RN notes): No Functional Status (Recalled from RN notes): yes - History of Present Illness Provider Complaint: Patient was diagnosed with COVID19 on 02/21/21. She took steroids, inhalers, breathing treatments. She still has fatigue, shortness of breath. She has ear pain, both eyes are red and matted, she has sinus pain and pressure, and her throat hurts and she is losing her voice. She has taken a Z-Pack, as well as Cefdinir. She had eye drops. Her PCP has only seen her via Telehealth, but has sent her for labs and chest Xrays. She has had 3 chest xray which were normal. Her white count has still been elevated. Her sugars have been high and breathing treatments seemed to make it worse. Onset (ago): week(s) (3) Location: face, chest Relieving factors: none Exacerbating factors: none Associated symptoms: cough, malaise, shortness of breath Treatments prior to arrival: other (see HPI) - Related Data Home Medications Medication Instructions Recorded Confirmed Furosemide [Furosemide 40MG tAB] 40 mg PO DAILY 01/06/18 01/06/18 Nystatin/Triamcin 100,000 iunits PO DAILY 01/06/18 01/06/18 [Nystatin-Triamcinolone Ointm] Rosuvastatin Calcium 10 mg PO DAILY 01/06/18 01/06/18 allopurinoL [Allopurinol 100mg 100 mg PO DAILY 01/06/18 01/06/18 tablet] carvediloL [Carvedilol 6.25mg Tab] 6.25 mg PO DAILY 01/06/18 01/06/18 Previous Rx's Medication Instructions Recorded Carboxymethylcellulos/Glycerin 1 drp OP Q2HP PRN 10 Days #1 ml 03/17/21 [Refresh Repair 0.5-0.9% Drop] Fluorometholone Acetate [Flarex] 1 drp OP QID 7 Days #1 ml 03/17/21 Trifluridine [Viroptic] 1 drp OP QID 7 Days #1 ml 03/17/21 Allergies Allergy/AdvReac Type Severity Reaction Status Date / Time Sulfa (Sulfonamide Allergy Mild Unverified 05/14/17 14:32 Antibiotics) [SULFA (SULFONAMIDE ANTIBIOTICS)] - Worker's Com
[2021-03-17 12:46] VITALS: BP 134/67; PULSE 82; RESP 16; TEMP 36.9
== END 2021-03-17 12:46 | disposition home or self-care (01) ==
PROVIDERS: Emergency Provider Physician Assistant; PCP Family Medicine
DX: B30.8 Other viral conjunctivitis (principal); U09.9 Post COVID-19 condition, unspecified; E11.9 Type 2 diabetes mellitus without complications; Z88.2 Allergy status to sulfonamides
CPT/HCPCS: G0463; 99202

== ENCOUNTER → 2021-05-02 14:48 | Outpatient (CLI) | payer MEDICARE, SELFPAY ==
--- NOTE | 2021-05-02 14:53 | CT_ITS ---
PROCEDURE: CT SINUS WO CON CLINICAL HISTORY: CHRONIC SINUSITIS COMPARISON: No exams were available for comparison TECHNIQUE: Axial images obtained with sagittal and coronal reformats. All CT scans at the facility use one or more dose reduction, viz: automated exposure control, ma/kV adjustment per patient size (including targeted exams where dose is matched to indication, i.e. head), or iterative reconstruction technique. FINDINGS: There is aplasia of the frontal sinuses. Unremarkable ethmoid sinuses. Mild mucosal thickening of the medial wall of the maxillary sinuses. The 12 x 8 mm retention cyst in the floor the left maxillary sinus. There is mild narrowing of the right ostiomeatal complex from underlying mucosal thickening. The left OMC is patent. Small Gigi cells incidentally noted in the left maxillary sinus. There is a retention cyst involving the medial and anterior aspect of the left sphenoid sinus measuring 8 mm. No sinus air-fluid level. The The orbits and TMJs are unremarkable. There is hyperostosis frontalis interna. IMPRESSION: There is mild paranasal sinus disease. No evidence of acute sinusitis. Please see above for detail. Dictated by: Tyler Jaime MD 05/03/2021 12:13 Tyler Jaime MD in [place] 05/03/2021 12:13
== END ==
PROVIDERS: PCP Family Medicine; Visit Provider Family Medicine
DX: J32.0 Chronic maxillary sinusitis (principal)
CPT/HCPCS: 70486

== ENCOUNTER → 2021-08-18 07:46 | Outpatient (CLI) | payer MEDICARE, SELFPAY ==
--- NOTE | 2021-08-18 | CA_ITS ---
FINAL REPORT TECHNIQUE: Left lower extremity venous duplex was performed with augmentation and compression. CLINICAL HISTORY: DM,Obesity ASA 81mg q day FINDINGS: Proper flow is seen throughout the deep venous system. There is no evidence of deep venous thrombosis. Note is made that the mid calf vessels were difficult to image secondary to body habitus. IMPRESSION: No deep venous thrombosis in the left lower extremity. Reviewed, Interpreted and Dictated by Chase Escalera MD Transcribed by Silvia Velazquez Authenticated by Chase Escalera MD on 08/18/2021 10:56:29 AM [facility]
== END ==
PROVIDERS: PCP Family Medicine; Visit Provider Family Medicine
DX: M79.605 Pain in left leg (principal)
CPT/HCPCS: 93971

== ENCOUNTER → 2021-10-20 10:36 | Outpatient (CLI) | payer MEDICARE, SELFPAY ==
[2021-10-20 11:16] LABS: Basophils # 0.2 K/mm3 (0-0.2); Basophils % 1.6 % (0.1-2.0); Eosinophils # 0.3 K/mm3 (0.0-0.4); Eosinophils % 3.3 % (0.1-12.0); Hematocrit 43.5 % (37.0-47.0); Hemoglobin 14.6 g/dL (12.2-16.2); Lymphocytes # 1.8 K/mm3 (0.7-4.5); Lymphocytes % 19.6 % (10-50); Mean Corpuscular HGB Conc 33.6 g/dL (31.8-35.4); Mean Corpuscular Hemoglobin 30.3 pg (27.0-31.2); Mean Corpuscular Volume 90.3 fl (81-99); Mean Platelet Volume 8.1 fl (7.4-10.4); Monocytes # 0.7 K/mm3 (0.1-1.0); Monocytes % 7.9 % (1.7-9.3); Neutrophils # 6.3 K/mm3 (1.8-7.8); Neutrophils % 67.7 % (37.0-80.0); Platelet Count 256 K/mm3 (142-424); Red Blood Count 4.82 M/mm3 (4.20-5.40); Red Cell Distribution Width 15.7 % (11.5-17.5); White Blood Count 9.3 K/mm3 (4.8-10.8)
[2021-10-20 11:38] LABS: Hemoglobin A1C 7.1 % (4.0-6.0)
[2021-10-20 11:44] LABS: Alanine Aminotransferase 22 U/L (12-78); Albumin Level 4.4 g/dl (3.5-5.0); Albumin/Globulin Ratio 1.6 (1.1-1.8); Alkaline Phosphatase 103 U/L (38-126); Anion Gap 15.3 mEq/L (5-15); Aspartate Amino Transferase 33 U/L (14-36); Bilirubin,Total 0.5 mg/dl (0.2-1.3); Blood Urea Nitrogen 18 mg/dl (7-17); Carbon Dioxide 28 mmol/L (22.0-30.0); Chloride 102 mmol/L (98-107); Chol/HDL Ratio 6.3 (1-3.5); Cholesterol 170 mg/dl (140-200); Estimated Glomerular Filt Rate 73 ml/min (>60); GFR (African American) 88 ML/MIN (>60); Globulin 2.7 g/dL (1.3-3.2); Glucose 164 mg/dl (74-100); HDL Cholesterol 27 mg/dl (40-60); Potassium 4.3 mmoL/L (3.5-5.1); Sodium 141 mmol/L (136-145); Total Protein,Serum 7.1 g/dl (6.3-8.2); Uric Acid 3.7 mg/dl (2.5-6.2)
[2021-10-20 11:54] LABS: Direct LDL Cholesterol 56.71 mg/dL (100-129)
[2021-10-20 11:59] LABS: 25-OH Vitamin D, Total 34.3 ng/mL (30-100)
[2021-10-20 12:06] LABS: Triglycerides 640 mg/dl (30-150)
[2021-10-20 12:12] LABS: Creatinine,Urine Random 52 mg/dL (Not Estab.); Microalbumin/Creatinine Ratio 17.5
== END ==
PROVIDERS: Visit Provider Family Medicine
DX: E11.59 Type 2 diabetes mellitus with other circulatory complications (principal); I42.9 Cardiomyopathy, unspecified; I10 Essential (primary) hypertension; E55.9 Vitamin D deficiency, unspecified; E79.0 Hyperuricemia without signs of inflammatory arthritis and tophaceous disease
CPT/HCPCS: 36415; 80053; 80061; 82043; 82306; 82570; 83036; 84550; 85025

== ENCOUNTER → 2021-11-16 10:35 | Outpatient (CLI) | payer MEDICARE, SELFPAY ==
--- NOTE | 2021-11-16 10:43 | CT_ITS ---
FINAL REPORT TECHNIQUE: Axial CT images of the abdomen and pelvis were obtained before and after the administration of IV contrast. Oral contrast was administered.This study was performed with techniques to keep radiation doses as low as reasonably achievable (ALARA). Individualized dose reduction techniques using automated exposure control or adjustment of mA and/or kV according to the patient''s size were employed. CLINICAL HISTORY: IBS. DIARRHEA, HIGH TRIGLYCERIDES COMPARISON: May 13, 2016 FINDINGS: Abdomen: There are several calcified granulomas. The heart is normal in size. There is mild fatty infiltration of the liver. There is evidence of cholecystectomy. The spleen is unremarkable. No adrenal masses present. The pancreas has an unremarkable appearance. There is a left renal scarring. The aorta is normal in caliber. There is no free fluid or adenopathy. No mass or abnormal fluid collection is seen. Precontrast images demonstrate no evidence of nephrolithiasis. Pelvis: The appendix is not identified. The urinary bladder is unremarkable. No inflammatory process is seen. There is no evidence of mass or adenopathy. There is no evidence of bowel obstruction. IMPRESSION: Mild fatty infiltration of the liver. Reviewed, Interpreted and Dictated by Lloyd Frias III, MD Transcribed by King Carey Authenticated and [facility]
== END ==
PROVIDERS: PCP Family Medicine; Visit Provider Family Medicine
DX: K58.0 Irritable bowel syndrome with diarrhea (principal)
CPT/HCPCS: 74178; Q9967

== ENCOUNTER → 2021-12-02 08:55 | Outpatient (CLI) | payer MEDICARE, SELFPAY | PROVIDERS: PCP Family Medicine; Visit Provider Family Medicine | DX: R10.84 Generalized abdominal pain (principal); B95.8 Unspecified staphylococcus as the cause of diseases classified elsewhere | CPT/HCPCS: 87086; 87186 ==

== ENCOUNTER → 2021-12-27 12:33 | Outpatient (CLI) | payer MEDICARE, SELFPAY ==
--- NOTE | 2021-12-27 12:41 | US_ITS ---
FINAL REPORT CLINICAL HISTORY: VAGINAL BLEEDING FINDINGS: Transvaginal sonographic images of the pelvis were obtained. The uterus measures 5.8 x 4.3 x 4.2 cm. The endometrium measures 11, which is thickened. There is a small amount of fluid within the endometrial canal. There is a 1.1 cm uterine mass consistent with a fibroid. The right ovary is not identified. The left ovary measures up to 1.5 cm with normal blood flow. There is no evidence of free fluid. IMPRESSION: Thickened endometrium with a small amount of fluid in the endometrial canal. Fibroid uterus. Right ovary not visualized. Reviewed, Interpreted and Dictated by Lloyd Frias III, MD Transcribed by King Carey Authenticated and [facility]
== END ==
PROVIDERS: PCP Family Medicine; Visit Provider Nurse Practitioner Family
DX: N93.8 Other specified abnormal uterine and vaginal bleeding (principal)
CPT/HCPCS: 76830

== ENCOUNTER → 2022-05-31 08:02 | Outpatient (CLI) | payer MEDICARE, SELFPAY ==
[2022-05-31 09:21] LABS: Chol/HDL Ratio 5.5 (1-3.5); Cholesterol 142 mg/dl (140-200); HDL Cholesterol 26 mg/dl (40-60)
[2022-05-31 09:22] LABS: Uric Acid 4.7 mg/dl (2.5-6.2)
[2022-05-31 09:23] LABS: Triglycerides 488 mg/dl (30-150)
[2022-05-31 09:40] LABS: Direct LDL Cholesterol 42.68 mg/dL (100-129)
== END ==
PROVIDERS: PCP Family Medicine; Visit Provider Internal Medicine Cardiovascular Disease
DX: E78.5 Hyperlipidemia, unspecified (principal); E78.1 Pure hyperglyceridemia; E79.0 Hyperuricemia without signs of inflammatory arthritis and tophaceous disease
CPT/HCPCS: 36415; 80061; 84550

== ENCOUNTER → 2022-11-07 11:30 | Outpatient (CLI) | payer MEDICARE, SELFPAY ==
--- NOTE | 2022-11-07 11:34 | XR_ITS ---
FINAL REPORT CLINICAL HISTORY: Right foot pain COMPARISON: None FINDINGS: RIGHT FOOT: Three views of the right foot were obtained. There is no acute fracture or dislocation. There is mild degenerative change. Calcaneal spurs are noted. There is pes planus deformity. There is no soft tissue abnormality. IMPRESSION: Degenerative changes without acute bony abnormality. Reviewed, Interpreted and Dictated by Lloyd Frias III, MD Transcribed by Sheila Jackson Authenticated and [facility]
--- NOTE | 2022-11-07 11:34 | XR_ITS ---
FINAL REPORT CLINICAL HISTORY: Foot Pain COMPARISON: None FINDINGS: LEFT FOOT: Three views of the left foot were obtained. There is no acute fracture or dislocation. There is mild degenerative change. Calcaneal spur is noted. There are calcifications of the distal Achilles tendon. Pes planus deformity is noted. IMPRESSION: Degenerative changes without acute bony abnormality. Reviewed, Interpreted and Dictated by Lloyd Frias III, MD Transcribed by Sheila Jackson Authenticated and [facility]
== END ==
PROVIDERS: PCP Family Medicine; Visit Provider Nurse Practitioner Family
DX: M79.671 Pain in right foot (principal); M79.672 Pain in left foot
CPT/HCPCS: 73630

== ENCOUNTER → 2022-12-10 10:25 | Outpatient (CLI) | payer MEDICARE, SELFPAY ==
[2022-12-10 11:17] LABS: Basophils # 0.1 K/mm3 (0-0.2); Basophils % 0.7 % (0.1-2.0); Eosinophils # 0.3 K/mm3 (0.0-0.4); Eosinophils % 3.7 % (0.1-12.0); Hematocrit 43.3 % (37.0-47.0); Hemoglobin 13.8 g/dL (12.2-16.2); Lymphocytes # 1.5 K/mm3 (0.7-4.5); Lymphocytes % 21.2 % (10-50); Mean Corpuscular HGB Conc 31.8 g/dL (31.8-35.4); Mean Corpuscular Hemoglobin 29.1 pg (27.0-31.2); Mean Corpuscular Volume 91.6 fl (81-99); Mean Platelet Volume 8.8 fl (7.4-10.4); Monocytes # 0.7 K/mm3 (0.1-1.0); Monocytes % 10.4 % (1.7-9.3); Neutrophils # 4.4 K/mm3 (1.8-7.8); Platelet Count 174 K/mm3 (142-424); Red Blood Count 4.72 M/mm3 (4.20-5.40); Red Cell Distribution Width 14.5 % (11.5-17.5); White Blood Count 6.8 K/mm3 (4.8-10.8)
[2022-12-10 11:27] LABS: Hemoglobin A1C 7.5 % (4.0-6.0)
[2022-12-10 12:10] LABS: Alanine Aminotransferase 27 U/L (12-78); Albumin Level 4.3 g/dl (3.5-5.0); Albumin/Globulin Ratio 1.5 (1.1-1.8); Alkaline Phosphatase 84 U/L (38-126); Anion Gap 11.6 mEq/L (5-15); Aspartate Amino Transferase 39 U/L (14-36); Bilirubin,Total 0.7 mg/dl (0.2-1.3); Blood Urea Nitrogen 22 mg/dl (7-17); Calcium 9.6 mg/dl (8.4-10.2); Carbon Dioxide 29 mmol/L (22.0-30.0); Chloride 105 mmol/L (98-107); Chol/HDL Ratio 5.2 (1-3.5); Cholesterol 131 mg/dl (140-200); Estimated Glomerular Filt Rate 72 ml/min (>60); GFR (African American) 87 ML/MIN (>60); Globulin 2.9 g/dL (1.3-3.2); Glucose 155 mg/dl (74-100); HDL Cholesterol 25 mg/dl (40-60); Potassium 4.6 mmoL/L (3.5-5.1); Sodium 141 mmol/L (136-145); Total Protein,Serum 7.2 g/dl (6.3-8.2)
[2022-12-10 12:11] LABS: Triglycerides 429 mg/dl (30-150)
[2022-12-10 12:20] LABS: Direct LDL Cholesterol 34.45 mg/dL (100-129)
== END ==
PROVIDERS: PCP Family Medicine; Visit Provider Family Medicine
DX: E11.59 Type 2 diabetes mellitus with other circulatory complications (principal); I10 Essential (primary) hypertension; Z13.220 Encounter for screening for lipoid disorders; Z79.84 Long term (current) use of oral hypoglycemic drugs; Z79.899 Other long term (current) drug therapy
CPT/HCPCS: 36415; 80053; 80061; 82043; 83036; 85025

== ENCOUNTER → 2022-12-14 10:40 | Outpatient (CLI) | payer MEDICARE, SELFPAY ==
--- NOTE | 2022-12-14 10:47 | MM_ITS ---
PROCEDURE INFORMATION: Exam: MG Bilateral Screening 3D Mammography Exam date and time: 12/14/2022 10:38 AM Age: 62 years old Clinical indication: Screening examination; Family history of breast cancer in grandmother TECHNIQUE: Imaging protocol: Bilateral Screening tomosynthesis and 2D mammography including computer-aided detection (CAD) when performed. COMPARISON: 1. MG SCBI MM Dig screening mamm BI w/CAD 06/20/2018 9:29 AM 2. MG DMSB DIG MAMM-SCREEN YSABEL W/CAD 06/28/2016 5:02 PM FINDINGS: MAMMOGRAPHY: Breast composition: The breasts are heterogeneously dense, which may obscure small masses. Mass: None. Architectural distortion: None. Calcifications: No suspicious calcifications. Asymmetric density: None. Skin thickening: None. Axillary adenopathy: None. IMPRESSION: No mammographic evidence of malignancy. Annual screening is recommended unless otherwise clinically indicated. ASSESSMENT: BI-RADS Category 1: Negative
== END ==
PROVIDERS: PCP Family Medicine; Visit Provider Family Medicine
DX: Z12.31 Encounter for screening mammogram for malignant neoplasm of breast (principal)
CPT/HCPCS: 77063; 77067

== ENCOUNTER → 2023-02-08 14:37 | Outpatient (CLI) | payer MEDICARE, SELFPAY ==
--- NOTE | 2023-02-08 14:46 | US_ITS ---
FINAL REPORT CLINICAL HISTORY: diminished pedal pulses, previous smoker, DM, hyperlipidemia, bilateral claudication, bilateral rest pain. COMPARISON: None FINDINGS: ANKLE-BRACHIAL PRESSURE INDICES Pressure indices are as follows: RIGHT LOWER EXTREMITY: Ankle-brachial pressure index: 1.0 Comments: Normal LEFT LOWER EXTREMITY: Ankle-brachial pressure index: 1.1 Comments: Normal IMPRESSION: No evidence of significant obstructive peripheral vascular disease of the lower extremities Reviewed, Interpreted and Dictated by Lloyd Frias III, MD Transcribed by Sheila Jackson Authenticated and [facility]
== END ==
PROVIDERS: PCP Psychiatry & Neurology Sleep Medicine; Visit Provider Nurse Practitioner Family
DX: R09.89 Other specified symptoms and signs involving the circulatory and respiratory systems; I25.10 Atherosclerotic heart disease of native coronary artery without angina pectoris; E11.8 Type 2 diabetes mellitus with unspecified complications
CPT/HCPCS: 93923